=== PATIENT | female | born 1995 | race Caucasian/White ===

== ENCOUNTER 2018-08-08 06:27 | Day surgery (SDC) | payer OTHER ==
[~2018-08-08] VITALS: Ht 160 cm; Wt 139.4 kg
[~2018-08-08 06:27] MED LIST: BALZIVA PO
--- NOTE | 2018-08-08 09:14 | NUR ---
08/08/18 0914 Francine hCapa INSTRUCTED ON USE OF IS, DEMONSTRATED CORRECT USE,
== END 2018-08-08 09:00 | disposition home or self-care (01) ==
LOC: ORSCSDS 06:27
PROVIDERS: Otolaryngology
PROC: 0CTPXZZ Resection of Tonsils, External Approach (ICD-10-PCS; principal; 2018-08-08 07:30)
DX: J35.01 Chronic tonsillitis (principal); J35.8 Other chronic diseases of tonsils and adenoids
CPT/HCPCS: 88304; J1100; J1885; J2250; J2405; J2704; J2710; J3010; J7120

== ENCOUNTER → 2020-09-10 | Outpatient (CLI) | payer OTHER ==
[~2020-09-10] MED LIST changes: +CEPH500 PO; +IBU600 M1 PO; +Roxicodone5 MG PO
== END | disposition home or self-care (01) ==
LOC: LAB 19:58 → LAB SHORT 19:58
DX: R30.0 Dysuria (principal)
CPT/HCPCS: 87077; 87086; 87186

== ENCOUNTER 2020-09-11 23:59 | Emergency (ER) | payer OTHER ==
[~2020-09-11] VITALS: Ht 157.5 cm; Wt 59.0 kg
== END 2020-09-12 01:56 | disposition left against medical advice (07) ==
LOC: ER 23:59
DX: Z53.21 Procedure and treatment not carried out due to patient leaving prior to being seen by health care provider (principal)

== ENCOUNTER → 2020-09-20 | Outpatient (CLI) | payer OTHER | LOC: LAB SHORT 11:07 → LAB 11:07 | DX: R30.0 Dysuria (principal) | CPT/HCPCS: 87077; 87086; 87186 ==

== ENCOUNTER 2021-01-23 14:31 | Emergency (ER) | payer OTHER ==
[~2021-01-23] VITALS: Ht 157.5 cm; Wt 61.2 kg
== END 2021-01-23 18:18 | disposition home or self-care (01) ==
LOC: ER 14:31
DX: R20.2 Paresthesia of skin (principal); M48.56XD Collapsed vertebra, not elsewhere classified, lumbar region, subsequent encounter for fracture with routine healing; R33.9 Retention of urine, unspecified; K59.00 Constipation, unspecified; Z88.1 Allergy status to other antibiotic agents
CPT/HCPCS: 72148; 96372; 99284